=== PATIENT | male | born 1990 | race African-American/Black ===

== ENCOUNTER 2025-03-21 16:48 | Emergency (ER) | payer OTHER, SELFPAY ==
--- NOTE | ~2025-03-21 | XR_ITS ---
EXAM: XR ankle LT min 3V DATE: 03/21/2025 17:40 HISTORY: L ankle pain MEDIALLY . COMPARISON: None available. FINDINGS: Normal mineralization. Curvilinear ossific fragment adjacent to the lateral aspect of the medial malleolus. Borderline medial clear space widening. No lytic or blastic lesion. Joint spaces ar e maintained. No erosion or periosteal change. Medial soft tissue swelling. Ankle joint effusion. IMPRESSION: Possible deltoid ligament injury. Ossific fragment adjacent to the medial malleolus may r epresent a ligamentous or capsular avulsion fracture fragment. Consider timely outpatient MR of the a nkle for further evaluation. Reviewed, dictated and finalized at location K. IMPRESSION: Possible deltoid ligament injury. Ossific fragment adjacent to the medial malleolus may represent a ligamentous or capsular avulsion fracture frag ment. Consider timely outpatient MR of the ankle for further evaluation.
[2025-03-21 16:52] VITALS: BP 142/99; PULSE 85; RESP 16; TEMP 36.8; O2SAT 97
[2025-03-21 17:50] VITALS: BP 144/87; PULSE 84; RESP 20; TEMP 36.6; O2SAT 99
--- NOTE | 2025-03-21 18:11 | ED.LOWEXIN ---
HPI - Extremity Injury (Lower) General Chief Complaint: Extremity Injury, Lower Stated Complaint: L ankle pain after rolling it 1 month ago Time Seen by Provider: 03/21/25 17:03 History of Present Illness HPI Narrative: Patient is a 34-year-old male who presents to the ER with complaints of left ankle pain that started following an injury approximately 1 month ago. 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 Patient reports he went to an outside ER who put him in a walking boot and told him there was soft tissue swelling. It is unclear whether not he was told to follow-up with orthopedics. Patient reports he was discharged with Toradol p.o., but the site continues to be painful. He denies any medical history and reports he does not take any daily medications. Patient denies any calf pain, numbness or tingling to the site, or recent fevers. Related Data Allergies Allergy/AdvReac Type Severity Reaction Status Date / Time No Known Allergies Allergy Verified 03/21/25 19:19 Review of Systems Review of Systems: All systems reviewed & are unremarkable except as noted in HPI and below Exam Narrative: GENERAL: Well appearing, well-nourished, non-toxic, in no acute distress. HEAD: Normocephalic, atraumatic. NECK: Supple. No adenopathy, no masses. RESPIRATORY: Airway patent, respirations nonlabored. Clear to auscultation bilaterally, no rales, rhonchi, wheezing. CARDIOVASCULAR: Regular rate and rhythm without murmurs, rubs, or gallops. Peripheral pulses 2+ and equal bilaterally. ABDOMINAL: Soft, nontender, nondistended, no hepatosplenomegaly. Normoactive BS. MUSCULOSKELETAL: Moves all extremities. + swelling LLE, mild decreased ROM, + pedal pulse bilaterally, -Víctor's sign SKIN: Warm, dry, normal color. No rashes. NEURO: A&O X3. Speech clear. Cranial nerves II-XII intact. No ataxic movements. PSYCHIATRIC: Appropriate mood and affect. Normal interaction. Course Vital Signs Vital signs: Vital Signs Temperature 36.8 C 03/21/25 16:52 Pulse Rate 85 03/21/25 16:52 Respiratory Rate 16 03/21/25 16:52 Blood Pressure 142/99 H 03/21/25 16:52 Pulse Oximetry 97 03/21/25 16:52 Oxygen Delivery Room Air 03/21/25 16:52 Temperature 36.3 C L 03/21/25 20:54 Pulse Rate 81 03/21/25 20:54 Respiratory Rate 18 03/21/25 20:54 Blood Pressure 143/82 H 03/21/25 20:54 Pulse Oximetry 99 03/21/25 20:54 Oxygen Delivery Room Air 03/21/25 17:50 MDM - Extremity Injury (Lower) MDM Narrative Medical decision making narrative: Patient is a 34-year-old male who presents to the ER with complaints of left ankle pain that started following an injury approximately 1 month ago. 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 Patient reports he went to an outside ER who put him in a walking boot and told him there was soft tissue swelling. It is unclear whether not he was told to follow-up with orthopedics. Patient reports he was discharged with Toradol p.o., but the site continues to be painful. He denies any medical history and reports he does not take any daily medications. Patient denies any calf pain, numbness or tingling to the site, or recent fevers. Labs Ordered: None necessary Imaging Ordered: Left ankle x-ray Medications Ordered: Suffield p.o. Results: Patient's left ankle x-ray indicates Possible deltoid ligament injury. Ossific fragment adjacent to the medial malleolus may represent a ligamentous or capsular avulsion fracture fragment. Consider timely outpatient MR of the ankle for further evaluation. Diagnosis: Deltoid ligament injury, medial malleolus avulsion fracture Consults: 1799-Orthopedic surgery, Dr. Vega. Dr. Vega advises pt should follow-up with [facility] orthopedics or the orthopedic surgeon the outside ER referred him to. He advised pt should be non-weight bearing for the next four weeks. 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 He was not provided with an orthopedic surgeon to follow-up with at the outside ER. Pt was referred to a primary care provider through [facility]. 1899-Spoke with [facility] who reports patient needs to follow up with his primary care provider, who can then refer patient to a 's related orthopedic surgeon. Extensive discussion between patient and P regarding the necessity for follow-up with an orthopedic surgeon through the [facility]. Patient gave verbal consent for AUTOMATIC PILOT MECH[employer]IC to speak with his [facility], Kendra Villa, regarding the importance following up with an orthopedic surgeon. Patient Education/Shared MDM: Results of imaging shared with patient and his . He endorses improvement of symptoms following medication administration. Patient strongly advised to follow-up with his PCP and an orthopedic surgeon as soon as possible. She will be discharged home with a prescription for ibuprofen 800 mg p.o., Suffield p.o., and Colace p.o.. Strict return precautions provided. Patient verbalized understanding and is in agreement with plan. Vital signs stable at time of discharge. All questions answered. Differential Diagnosis Differential diagnosis: Likely ankle sprain and strain, ankle fracture and other (Ligament injury) Imaging Data Attestation: I personally reviewed and interpreted this imaging study as follows: Radiologist's impression: Impressions Ankle X-Ray 03/21/25 17:43 IMPRESSION: Possible deltoid ligament injury. Ossific fragment adjacent to the medial malleolus may represent a ligamentous or capsular avulsion fracture fragment. Consider timely outpatient MR of the ankle for further evaluation. Discharge Plan Discharge Clinical Impression: Avulsion fracture of medial malleolus, Deltoid ligament ankle sprain Patient Disposition: Home Condition: Stable Instructions: Antibiotic Form Additional Instructions: Please return to the ER with any worsening symptoms. Follow-up with primary care provider and orthopedic surgery as soon as possible. Take all medications as prescribed. Please do not do any weight-bearing activities on your ankle until orthopedic surgery follow-up.. Patient Language: Bhutanese Prescriptions: New ibuprofen 800 mg tablet 800 mg PO TID PRN (Reason: pain) Qty: 60 0RF hydrocodone-acetaminophen 5-325 mg tablet 1 tablet PO Q6H PRN (Reason: pain) Qty: 10 0RF docusate sodium [Colace] 100 mg capsule 100 mg PO BID Qty: 30 0RF Follow-up/Referrals: [place] [facility] [Outside] (primary care provider) PHYSICIAN NOT ON STAFF,NONSTAFF [Primary Care Provider] - Stand Alone Forms: Work/School Release IP Time of Disposition: 20:23
--- OUTSIDE RECORDS SUMMARY | 2025-03-21 18:18 | XMS_ITS | Encounter Summary ---
Author Organization [facility] Healthcare Address [address] [place] [address] Care Team Providers Care Printer Small Print Shop Name Role Phone Diego Randall MD Primary Care Provider Encounter Details Date Type Department Care Team (Late st Contact Info) Description 05/14/2024 Telephone [facility] Primary [facility] Medicine Clinic [address] [facility] [address] [place] [address] Jose Hillman Social History Tobacco Use Types Packs/Day Years Used Date Smoking Tobacco: Never Alcohol Use Standard Drinks/Week Comments Not Currently 0 (1 standard drink = 0.6 oz pur e alcohol) AUDIT-C Answer Date Recorded Q1: How often do you have a drink containing alc ohol? Never 02/14/2021 Average Number of Drinks Not on file 021 Frequency of Binge Drinking Not on file 02/03 Personal Safety Answer Date Recorded Have you ever been in or are you currently in a harmful physical or emotional relationship or is someone making you feel afraid or unsafe? 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
--- OUTSIDE RECORDS SUMMARY | 2025-03-21 18:19 | XMS_ITS | Clinical Summary ---
Author Organization [facility] Address [facility] [place] [address] Care Team Providers Care Vp Information Technology Name Role Phone None, Provider Primary Care Provider Unavaila ble Allergies Active Allergy Reactions Criticality Noted Date Comments Shellfish-Derived Products Unknown Encounters Date Type Department Care Team Description 12/31/2024 11:39 AM CDT - 12/31/2024 12:06 PM CDT Emergency [facility] [place] [address] Luis Antonio Jain PA Laceration Discharge Disposition: Home or Self Care (Routine Discharge) 12/31/2024 Travel from Last 3 Months Social History Tobacco Use Types Packs/Day Years Used Date Smoking Tobacco: Never Smokeless Tobacco: Never Tobacco Cessation:Counseling Given: Not Answered Alcohol Use Standard Drinks/Week Comments Yes 0 (1 standard drink = 0.6 oz pur e alcohol) socially Sex and Gender Information Value Date Recorded Sex Assigned at Not on file Legal Sex Male 6:18 PM CDT Gender Identity Not on file Sexual Orientation Not on file Last Filed Vital Signs Vital Sign Reading Time Taken Comments Blood Pressure 168/87 12/31/2024 11:40 AM CDT Pulse 85 12/31/2024 11:40 AM CDT Temperature 36.2 C (97.2 F) 12/31/2024 11:40 AM CDT Respiratory Rate 18 12/31/2024 11:4 0 AM CDT Oxygen Saturation 99% 12/31/2024 11: 40 AM CDT Inhaled Oxygen Concentration - - Weight 107.3 kg (236 lb 8.9 oz) 025 11:40 AM CDT Height 175.3 cm (5' 9) 12/31/2024 11:4 0 AM CDT Body Mass Index 34.93 12/31/2024 11:40 AM CDT Plan of Treatment Health Maintenance Due Date Last Done Comments Annual Physical 1993 Hepatitis C 2008 COVID-19 Vaccine (2023- season) 2024 DTaP, Tdap and Td Vaccines (7 - Td or Tdap) 07/20/2029 07/20/2019, 08/31/2002, 07/22/1992, Additional history exists Hepatitis B Vaccines Completed 06/12/2002, 04/12/2002, 05/25/2001 Meningococcal Vaccine Aged Out 07/20/2019, 006 No longer eligible based on patient's age to complete this topic HPV Vaccines Aged Out No longer eligi ble based on patient's age to complete this topic Meningococcal B Vaccine Aged Out No l onger eligible based on patient's age to complete this topic Pneumococcal Vaccine: Pediatrics (0 to 5 Years) and At-Risk Patients (6 to 49 Years) Aged Out No longer eligible based on patient's age to complete this topic RSV Immunizations Under 20 Months Aged Out No longer eligible based on patient's age to complete this topic Care Teams Vp Information Technology Relationship Specialty Start Date End Date None, Provider, MD PCP - General UNKNOWN PHYSICIAN SPECIALTY 12/31/24
--- OUTSIDE RECORDS SUMMARY | 2025-03-21 18:19 | XMS_ITS | Clinical Summary ---
Author Organization [facility] [place] Address [address] [place] [address] Care Team Providers Care Platform Software Engineer Name Role Phone Diego Randall MD Primary Care Provider Allergies Active Allergy Reactions Criticality Noted Date Comments Shellfish Containing Products Nausea & Vomiting Medium 04/13/2024 Medications amLODIPine (NORVASC) 5 mg tabletIndicatio ns:Hypertension , essential Take 1 tablet (5 mg total) by mouth daily 90 tablet 3 4 04/13/20 25 Active bacitracin 500 unit/gram ointment Apply topically 2 (two) times a day 120 g 4 Active ketorolac (TORADOL) 10 mg tablet Take 1 tablet (10 mg total) by mouth every 6 (six) hours as needed for pain 20 tablet 5 Active Active Problems Problem Noted Date Diagnosed Date Hypertension, essential 04/13/2024 Assessment & Plan (04/13/2024 3:10 PM CDT): Has been hypertensive during [facility] medical visits but never started on any medications. He is worried about the cost of the visit today. We decided to prescribe norvasc since it is fairly affordable w/o insurance and does not require frequent lab monitoring. - Started norvasc 5mg daily this visit. - Encouraged to f/u in a few months once insurance is sorted so we can re- evaluate. Sleep apnea-like behavior 04/13/2024 Assessment & Plan (04/13/2024 3:07 PM CDT): Reports he's been told by the [employer] that he has sleep apnea and stops breathing when he is sleeping on his back. He states that he tries to sleep on his side to prevent this from happening. Today, he is worried about the cost of visit so he would like to address this later once his insurance is sorted. - Offered sleep medicine referral for sleep study. Encouraged to return to clinic to revisit his once insurance is sorted out. Palpitation 04/13/2024 Assessment & Plan (04/13/2024 3:19 PM CDT): On cardiac exam today, pt had skipped heart beats. He has never been told this before. He does endorse fast heart beats and CP occasionally. - Offered EKG but pt deferred until he has insurance. 48hr Holter Monitor was placed in case the insurance we see on file is active. - Encouraged to f/u Resolved Problems Problem Noted Date Diagnosed Date Resolved Date Skipped heart beats 04/13/2024 04/13/20 24 Assessment & Plan (04/13/2024 3:12 PM CDT): Pt had Irregular heart rhythm 04/13/202404/13 Encounters Date Type Department Care Team Description 02/17/2025 4:04 PM CDT - 02/17/2025 5:[address] [facility] Emergency Department [address] [place] [id number] Acute left ankle pain (Primary Dx) Discharge Disposition: Discharge to home or self care from Last 3 Months Immunizations Immunization Administration Dates Next Due Adenovirus 07/20/2019 DTP 07/22/1992, 2,1990,06/29 Hep A, Pediatric 09/09/2005 Hep B, Adolescent or Pediatric 06/12/2002,2001,05/25/2001 IPV 07/20/2019,01/05/2005 Influenza, Quadrivalent, Spl it, Preservative Free, Intramuscular 07/09/2023,08/08/2021,07/27/2020,08/20 MMR 09/12/2021, 9,11/20/1991,07/13 Meningococcal MCV4P (Menactra) 07/20/2019 Meningococcal Polysaccharide (Menomune) 09/09/2005 OPV 07/22/1992, 2,1990,06/29 Td, adsorbed 08/31/2002 Tdap 07/20/2019 Medical History Medical History Date Comments Hypertension Family History Medical History Relation Name Comments No Known Problems Mother Relation Name Status Comments Mother Social History Tobacco Use Types Packs/Day Years [...] making you feel afraid or unsafe? 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 Gender Identity Not on file Sexual Orientation Not on file Obstetrics History Last Filed Vital Signs Vital Sign Reading Time Taken Comments Blood Pressure 161/94 02/17/2025 3:44 PM CDT Pulse 82 02/17/2025 3:44 PM CDT Temperature 36.8 C (98.2 F) 02/17/2025 3:44 PM CDT Respiratory Rate 14 02/17/2025 3:44 PM CDT Oxygen Saturation 98% 02/17/2025 3:44 PM CDT Inhaled Oxygen Concentration - - Weight 109.4 kg (241 lb 2.9 oz) 02/17/2025 3:44 PM CDT Height 175.3 cm (5' 9) 02/17/2025 3:44 PM CDT Body Mass Index 35.62 02/17/2025 3:44 PM CDT Plan of Treatment Health Maintenance Due Date Last Done Comments Depression Screening 1990 Hepatitis C Screening 1990 Varicella Vaccines (1 of 2 - 13+ 2-dose series) 2003 Regular Well Visit/Exam 18-64 2008 Covid-19 Vaccine ( season) 2024 09/08/2021, 06/19/2021 Influenza Vaccine (#1) 2025 , 08/08/2021, 07/27/2020, Additional history exists DTaP/Tdap/Td Vaccine (6 - Td or Tdap) 07/20/2029 07/20/2019, 08/31/2002, 07/22/1992, Additional history exists Hepatitis B Screening Completed 06/12/2002 , 04/12/2002, 05/25/2001 HPV Vaccines Aged Out No longer eligi ble based on patient's age to complete this topic Pneumococcal vaccine <65 Aged Out No longer eligible based on patient's age to complete this topic Procedures Procedure Name Priority Date/Time Associated Diagnosis Comments XR ANKLE LEFT 3 OR MORE VIEWS ED 02/17/2025 4:01 PM CDT from Last 3 Months Results * XR Ankle Left 3 or More Views (02/17/2025 4:01 PM CDT) Anatomical Region Laterality Modality Lower Extremities, Ankle Left Compute d Radiography 02/17/2025 4:07 PM CDT Narrative 02/17/2025 4:12 PM CDT EXAM DESCRIPTION: XR ANKLE LEFT 3 OR MORE VIEWS REASON FOR STUDY: pain Left ankle injury 5 days ago playing football, no improvement. TECHNIQUE: 3 radiographic view(s) of the left ankle . COMPARISON: None available. FINDINGS: BONES/JOINTS: There is normal osseous alignment. No acute fracture or dislocation. The joint spaces are maintained. SOFT TISSUES: Soft tissue swelling is seen about the ankle with medial predominance. IMPRESSION: Soft tissue swelling of the ankle without acute osseous abnormality. THIS IS AN ELECTRONICALLY VERIFIED FINAL REPORT 02/17/2025 4:12 PM - Electronically signed by Luis Antonio Villalobos M.D. MF: [email or web address] Report ID: [id number] Reading Location: [id number] Procedure Note Luis Antonio Villalobos, DO - 02/17/2025 EXAM DESCRIPTION: XR ANKLE LEFT 3 OR MORE VIEWS REASON FOR STUDY: pain Left ankle injury 5 days ago playing football, no improvement. TECHNIQUE: 3 radiographic view(s) of the left ankle . COMPARISON: None available. FINDINGS: BONES/JOINTS: There is normal osseous alignment. No acutefracture or dislocation. The joint spaces are maintained. SOFT TISSUES: Soft tissue swelling is seen about the ankle with medial predominance. IMPRESSION: Soft tissue swelling of the ankle without acute osseous abnormality. THIS IS AN ELECTRONICALLY VERIFIED FINAL REPORT 02/17/2025 4:12 PM - Electronically signed by Luis Antonio Villalobos M.D. MF: [email or web address] Report ID: [id number] Reading Location: [place] [address] Doron Pearson MD IMG XR PROCEDURES Final R esult from Last 3 Months Insurance WORKERS COMPENSATION GENERIC [facility] [employer] PL[employer] Care Teams Platform Software Engineer Relationship Specialty Start Date End Date Diego Randall MD [address] [place] [address] PCP - General Internal Medicine 04/13/24
--- OUTSIDE RECORDS SUMMARY | 2025-03-21 18:19 | XMS_ITS | Referral Summary ---
Author Organization [facility] Address [address] [place] [address] Care Team Providers Care Vocational Rehabilitation Teacher Name Role Phone Diego Randall MD Primary Care Provider Encounters Date Type Department Care Team Description 02/17/2025 4:04 PM CDT - 02/17/2025 5:04 PM CDT Emergency [facility] Emergency Department [address] [place] [id number] Acute left ankle pain (Primary Dx) Discharge Disposition: Discharge to home or self care from Last 3 Months Allergies Active Allergy Reactions Criticality Noted Date [...] 3:10 PM CDT): Has been hypertensive during [employer] medical visits but never started on any [...] CDT): Pt had Irregular heart rhythm 04/13/202404/13 Immunizations Immunization Administration Dates Next Due Adenovirus 07/20/2019 DTP 07/22/1992, 2,1990,06/29 Hep A, Pediatric 09/09/2005 Hep B, Adolescent or Pediatric 06/12/2002,2001,05/25/2001 IPV 07/20/2019,01/05/2005 Influenza, Quadrivalent, Spl it, Preservative Free, Intramuscular 07/09/2023,08/08/2021,07/27/2020,08/20 MMR 09/12/2021, 9,11/20/1991,07/13 Meningococcal MCV4P (Menactra) 07/20/2019 Meningococcal Polysaccharide (Menomune) 09/09/2005 OPV 07/22/1992, 2,1990,06/29 Td, adsorbed 08/31/2002 Tdap 07/20/2019 Social History Tobacco Use Types Packs/Day Years Used Date Smoking Tobacco: Never Alcohol Use Standard Drinks/Week Comments Not Currently 0 (1 standard drink = 0.6 oz pur e alcohol) AUDIT-C Answer Date Recorded Q1: How often do you have a drink containing alc ohol? Never 02/14/2021 Average Number of Drinks Not on file Frequency of Binge Drinking Not on file 02/03 Personal Safety Answer Date Recorded Have you ever been in or are you currently in a harmful physical or emotional relationship or is someone making you feel afraid or unsafe? 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 MF: GUANACO Report ID: [id number] Reading Location: [id number] Procedure Note Luis Antonio Villalobos, - 02/17/2025 EXAM DESCRIPTION: XR ANKLE LEFT [...] PM - Electronically signed by Luis Antonio Vilallobos M.D. MF: GUANACO Report ID: [id number] Reading Location: [id number] Doron Pearson MD IMG XR PROCEDURES Final R esult from Last 3 Months Insurance WORKERS COMPENSATION [facility] PL[facility] Care Teams Vocational Rehabilitation Teacher Relationship Specialty Start Date End Date Diego Randall MD [address] [place] [address] PCP - General Internal Medicine 04/13/24
--- OUTSIDE RECORDS SUMMARY | 2025-03-21 18:19 | XMS_ITS | Continuity of Care Document ---
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 It does not include entries that were removed or entered in error. Problem Status Onset Date Problem Type Date of Resolution Comments Source Allergic conjunctivitis of both eyes Active 03/29/2024 Diagnosis 0064C-GUERO Nieto Allergic conjunctivitis of both eyes Active 03/26/2024 Diagnosis 0064A-GUERO Nieto Allergic conjunctivitis of both eyes Active Condition 0064A-GUERO Nieto Acute atopic conjunctivitis, bilateral Active Diagnosis [facility]-GUERO Nieto Medications Combined list of outpatient medications from Department [facility] facilities.Medications provided include 1) outpatient medications from the last 15 months, and 2) patient-reported medications. Medication Details Route Status Patient Instructions Prescription Expires Prescription Number Last Dispense Date Ordering Provider Order Date Order Qty Source Patanol 0.1% ophthalmic solution 1 drop(s), Eye-Both , BID, # 5 mL, 0 total refill(s ), Acute, Pharmacy : [facility] Both eyes Complet ed 04/29/2024 4 2023 5.0 0064C-A JEAN-PIERRE aldrich Allergies, Adverse Reactions, Alerts Combined list of allergies from Department of Defense and Veterans Affairs facilities. It does not include entries that were removed or entered in error. Substance Category Reaction Severity Reaction type Status Date Reported Comments Source No Known Allergies Drug allergy (disorder) active 0 [facility] shellfish Food allergy Vomiting Moderate Active 4A-GUERO Nieto Immunizations Combined list of available immunizations from the Department of [facility] and Veterans Affairs facilities. 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 (MOD) Not Given COVID-19, mRNA, LNP-S, PF, 100 mcg or 50 mcg dose DoD influenza, injectable, quadrivalent- pf 2020 [id number] Seqirus complet ed influenza , injectabl e, quadrival ent-pf 08/08/21 Given Ambulat ory Pharmac y COVID Vaccine Moderna 2020 207 complet ed COVID Vaccine Moderna 06/19/21 Given Ambulat ory Pharmac y COVID-19, mRNA, LNP-S, PF, 100 mcg or 50 mcg dose 2020 PAULCitySlickera [employer] (MOD) Not Given COVID-19, mRNA, LNP-S, PF, 100 mcg or 50 mcg dose DoD influenza, injectable, quadrivalent- pf 2019 150 complet ed influenza , injectabl e, quadrival ent-pf 07/27/20 Given Ambulat ory Pharmac y influenza, injectable, quadrivalent- pf 2019 150 complet ed influenza , injectabl e, quadrival ent-pf 07/27/20 Given Ambulat ory Pharmac y influenza, injectable, quadrivalent, preservative free 2019 ALUL, () Not Given influenza , injectabl e, quadrival ent, preservat azael free DoD Influenza, injectable, quadrivalent, preservative free 0 2019 150 (MVX) complet ed Influenza , injectabl e, quadrival ent, preservat azael free DoD influenza, injectable, quadrivalent- pf 2018 Arnoldo weston Arm [id number] 150 Seqirus complet ed influenza , injectabl e, quadrival ent-pf 08/20/19 Given Ambulat ory Pharmac y Influenza, injectable, quadrivalent, preservative free 1 2018 JANIYA HYLTON [id number] 150 Seqirus (SEQ) complet ed Influenza , injectabl e, quadrival ent, preservat azael free DoD meningococcal A,C,Y,W-135 (MCV4P) 2018 [id number] 114 sanofi pasteur complet ed meningoco ccal A,C,Y,W-1 35 (MCV4P) 07/20/19 Given Ambulat ory Pharmac y adenovirus vaccine, live 2018 [id number] 143 Teva Pharmaceutica ls complet ed adenoviru s vaccine, live 07/20/19 Given Ambulat ory Pharmac y poliovirus vaccine, inactivated 2018 [id number] 10 sanofi pasteur complet ed polioviru s vaccine, inactivat ed 07/20/19 Given Ambulat ory Pharmac y tetanus, diphtheria, acellular pertu is 2018 [id number] 115 [employer] wy complet ed tetanus, diphtheri a, acellular pertussis 07/20/19 Given Ambulat ory Pharmac y measles/mumps /rubella virus vaccine 2018 [id number] 03 Merck & Company Inc complet ed measles/m umps/rube lla virus vaccine 07/20/19 Given Ambulat ory Pharmac y measles, mumps and rubella virus vaccine 1 2018 [id number] 03 Merck (MSD) complet ed measles, mumps and rubella virus vaccine DoD poliovirus vaccine, inactivated 1 2018 [id number] 10 Sanofi Pasteur (PMC) complet ed polioviru s vaccine, inactivat ed DoD meningococcal polysaccharid e (groups A, C, Y and W-135) diphtheria toxoid conjugate vaccine (MCV4P) 1 2018 [id number] 114 Sanofi Pasteur (PMC) complet ed meningoco ccal polysacch aride (groups A, C, Y and W-135) diphtheri a toxoid conjugate vaccine (MCV4P) DoD tetanus toxoid, reduced diphtheria toxoid, and acellular pertu is vaccine, adsorbed 1 2018 [id number] 115 [employer] (SKB) complet ed tetanus toxoid, reduced diphtheri a toxoid, and acellular pertussis vaccine, adsorbed DoD Adenovirus, type 4 and type 7, live, oral 1 2018 [id number] 143 [facility] [employer] (BRR) [facility] ed Adenoviru s, type 4 and type 7, live, oral DoD varicella virus vaccine 1 2018 UNK 21 Unknown (UNK) Not Given varicella virus vaccine DoD hepatitis B vaccine, adult dosage 1 2018 UNK 43 Unknown (UNK) Not Given hepatitis B vaccine, adult dosage DoD hepatitis A vaccine, adult dosage 1 2018 UNK 52 Unknown (UNK) Not Given hepatitis A vaccine, adult dosage DoD Vital Signs Combined list of inpatient and outpatient Vital Signs from Department of Defense and Veterans Affairs, ranging from 12 months to all on record, depending upon the facility. Vital Sign Value Date Comments Source Respiratory Rate 18 br/min 03/26/2024 01:44:00 [employer]64[employer] Hina Systolic Blood Pressure 140 mm[Hg] 03/26/2024 01:44:00 [employer] Uyvwr-Appkk-Clgsgio Diastolic Blood Pressure 86 mm[Hg] 03/26/2024 01:44:00 0064A-ACH Hina Temperature Temporal Artery 36.6 Patrizia 03/26/2024 01:44:00 0064A-ACH Zvbzv-Viurt-Lxlinus Peripheral Pulse Rate 66 bpm 03/26/2024 01:44:00 [facility]64A[employer] Ddbsg-Zkabf-Nlpnesq Encounters Combined list of: 1) Encounters from Department of Veterans Affairs facilities going backup to the last 18 months, not all VA inpatient encounters are included; 2) Encounters from the Department of Defense facilities going backup to 280 months. Location Location Details Encounter Type Encounter Number Reason For Visit Attending Provider ADM Date DC Date Status Disposition Source [facility](IEP Primary Care) OUTPATIENT [id number] Notes Entered by: ERNESTO PEREZ 01 Aug 2019 0715 ------- ------- ------- ------- -- OBDULIA SKINNER 08/01 Released w/o Limitations [facility] [employer] [facility](I EP Primary Care) [employer] [facility]) OUTPATIENT [id number] UMBERTO MANNING 08/20 Released w/o Limitations [facility] Flu [facility]) [address] [place] [address]([facility]) OUTPATIENT [id number] Notes Entered by: Nafisa HOWELL 17 Sep 2019 0703 ------- ------- ------- ------- -- R foot, R knee CHANDAN HOWELL 09/17 Released with Work/Duty Limitations [address] [place] [address]([facility] ) [address] [place] [address]([facility]) OUTPATIENT [id number] Notes Entered by: Nafisa HOWELL 02 Oct 2019 1007 ------- ------- ------- ------- -- R foot - FORGE CHANDAN HOWELL 10/02 Released w/o Limitations [address] [place] [address]([facility] ) [facility]([address]) OUTPATIENT [id number] Notes Entered by: KEVIN BYRD 07 Nov 2019 0614 ------- ------- ------- ------- -- R Foot x2 months, Cold Symptom s x3-4 days JEANNETTE PARK 11/06 Released with Work/Duty Limitations [facility]([address]) [address] [place] [address] Bienvenido CISNEROS ([facility])(War rior Op Med Cln Tm A Ad) TELE CONSULT [id number] Notes Entered by: MARTINEZ PATEL 10 Dec 2020 1132 ------- ------- ------- ------- -- ER f/u/Non -enroll ee (on orders) / LEROY TODD 12/10 Released to Self Care [address] [place] [address] Bienvenido CISNEROS ([facility])(W arrior Op Med Cln Tm A Ad) 0064A-ACH Lyric Shah n Emergency [id number] Acute atopic conjunc tivitis , bilater al,Markusut e atopic conjunc tivitis , bilater al GRACIE MCKEON 03/26 Discharge Disposition: Immediate Referral 0064A-A JEAN-PIERRE winkleron 0064C-ACH Lyric gupta [facility] [id number] Acute atopic conjunc tivitis , bilater cherri MERINOIU 03/29 Discharge Disposition: Home or Self Care 0064C-A JEAN-PIERRE aldrich Procedures Combined list of: 1) Procedures from Department of Veterans Affairs facilities going back up to thelast 18 months, not all VA non-surgical procedures are included; 2) All procedures from the Department of Defense facilities. Procedure Procedure Type Code Date Perfomer Comments Sourc e No data available for this section Ambulato ry Pharmacy TELE ASSESS & MGT SRV PROV QUAL NONPHYS HLTH CARE PRO TO EST PAT,PARENT,GUARD NOT ORIG REL ASSESS & MGT SRV PROV W/IN PREV 7 DAYS NOR LEAD ASSESS & MGT SRV/PX W/IN NXT 24 HR/SOON APT;5-10 MIN MED DIS 12/11/19 21 [facility] FOOT, ARCH SUPPORT, REMOVABLE, PREMOLDED, LONGITUDINAL, EACH 10/02/19 20 [facility] THERAPEUTIC PROCEDURE,1 OR MORE AREAS,EACH 15 MINUTES;NEUROMUSCU LAR REEDUCATION OF MOVEMENT,BALANCE,C OORDINATION,KINEST HETIC SENSE,POSTURE,AND/ OR PROPRIOCEPTION FOR SITTING AND/OR STANDING ACTIVITIES 09/17/19 20 [facility] INFLUENZA VIRUS VACCINE, QUADRIVALENT (IIV4), SPLIT VIRUS, PRESERVATIVE FREE, 0.5 ML DOSAGE, FOR INTRAMUSCULAR USE 08/16/20 19 [facility] ADENOVIRUS VACCINE, TYPE 7, LIVE, FOR ORAL USE 08/01/20 19 [facility] EAR MOLD/INSERT, NOT DISPOSABLE, ANY TYPE 07/18/20 19 [facility] Non-Physician Phone Call To Patient/Provider Brief (5-10min) Non-Physician Phone Call To Patient/Provider Brief (5-10min) [id number] LEROY TODD DoD Immunization Administration One Vaccine Immunization Administration One Vaccine 51785 OBDULIA PIÑA DoD Immunization Administration Each Additional Vaccine Immunization Administration Each Additional Vaccine 88636 OBDULIA PIÑA DoD Vaccines Viral Polio, Inactivated (Salk) Vaccines Viral Polio, Inactivated (Salk) 08302 [facility] Vaccines Viral Measles, Mumps and Rubella, Live Vaccines Viral Measles, Mumps and Rubella, Live 84739 [facility] Tdap Vaccine Tdap Vaccine 78152 [facility] Immunization Admin Intranasal / Oral Each Additional Vaccine Immunization Admin Intranasal / Oral Each Additional Vaccine 94893 [facility] Vaccines Adenovirus Type 4 Live, For Oral Use Vaccines Adenovirus Type 4 Live, For Oral Use 22105 [facility] Vaccines Adenovirus Type 7 Live, For Oral Use Vaccines Adenovirus Type 7 Live, For Oral Use 64426 [facility] Physical Therapy Neuromuscular Re-education Physical Therapy Neuromuscular Re-education 73498 CHANDAN HOWELL Athletic Training Re-evaluation Athletic Training Re-evaluation 37097 CHANDAN HOWELL Physical Therapy Education Orthotics Training Physical Therapy Education Orthotics Training 81514 CHANDAN HOWELL Foot, arch support, removable, premolded, longitudinal, each CHANDAN HOWELL Social History Combined list of available smoking, tobacco, and other social history from Department of Defense and Veterans Affairs facilities. Social History Type Response Date Comment Sour e Sex Representation Male (finding) 11/23/2023 Un known Organization Tobacco Cigarette use: Never-cigarette user. Other Tobacco use: Never-other tobacco user (not cigarettes). Ambulatory Pharmacy Sexual Orientation Ambula tory Pharmacy Gender identity Ambulator y Pharmacy This section is an empty social history section. [facility] Assessment and Plan Combined list of future care activities from Department of Defense and Veterans Affairs facilities (e.g., assessment and plan notes, appointments, orders, and referrals). Additional future care activities may be listed in the Plan of Care section. Result Assessment and Plan Date Source Assessment and Plan Extracted from:Title : Eye Care Office Visit Note Author: VIN MON, OD Date: 03/29/24 1. A llergic conjunctivitis of both eyes Educated patient on ocular findings. Patient instructed to discontinue Visine gtts. Patient instructed to increase doseage of Refresh gtts from every other day to atleast 4-6x/day OS. Patient also Rx-ed patanol to use BID OU (OS especially). Patient returns to [place] 09 Apr 2024. Orders: olopatadine ophthalmic(Patanol 0.1% ophthalmic solution), 1 drop(s), Eye-Both, BID, # 5 mL, 0 total refill(s), Acute, 1 drop(s) Eye-Both BID, Pharmacy: [facility] [Not filled] Discussed: Diagnosis, Medication(s)/Treatment(s), Alternatives, Potential Side Effects with Patient/Parent who indicated understanding. Comments: Medication reconciliation completed, list given to patient and/or updated in the Electronic Health Record (EHR). Medication reconciliation was completed using active medication information currently available within the EHR and patient reported active medications. Patient instructed on the importance of maintaining a current/accurate medication list and fully disclosing all active medications, including over the counter medication, herbal supplements and other supplements to their care team. Patient was also advised to bring a list of their medications with them to all future appointments and to keep a copy with them at all times for easy accessibility in the event of an emergency. Patient stated clear understanding of instructions as provided. ABBREVIATION LIST ADSO=Active Duty Service Obligation, APD = Afferent Pupillary Defect, ARx = AutoRefraction, AR = Anti-Reflective Coating, ATs = Artificial Tears, BULB = Bilateral Upper Lid Blepharoplasty, C/D = Cup to Disc, cc = With Corrective Lenses, CHRPE = Congenital Hypertrophy of the Retinal Pigment Epithelium, SCL = Soft Contact Lens, CT = Cover Test, CVF = Confrontational Visual Pak, CXL=Corneal Cross-linking, STACY = Dry Eye Syndrome, DFE = Dilated Fundus Exam, DVO=Distance Vision Only Glasses, EOMs = ExtraOcular Muscles, epi= epithelium, ET: Esotropia, EP: Esophoria, FBS = Foreign Body Sensation, FLR = Foveal Light Reflex,FML = Fluorometholone Ophthalmic Suspension, FTFC = Full To Finger Count, GAT = Goldmann Applanation Tonometry, H/E/SRF = Hemorrhages/Exudates/Sub-Retinal Fluid, , HM = Hand Motion, HVF = Palmer Visual Field, OSMEL=Higher Order Aberrations, ICL = Implantable Collamer Lens, IIH=Idiopathic Intracranial Hypertension, LASIK = Laser Assisted In Situ Keratomileusis, COURTNEY = Last Eye Exam, LVC=Laser Vision Correction, mmHg = Millimeters of Mercury, MRx = Manifest Refraction, NCT = Non-Contact Tonometry, NPC = Near Point of Convergence, NVD = NeoVascularization of the Disc, NVE = NeoVascularization Elsewhere, NVI = NeoVascularization of the Iris, OCT = Optical Coherence Tomography, Pach=Pachymetry, PAL=Progessive Addition Lenses, PEE = Punctate Epithelial Erosions, PF= Pred Forte, PHNI = No Improvement with PinHole, PIP = PseudoIsochromatic Plates, POAG = Primary Open Angle Glaucoma, PPA = Peripapillary Atrophy, PRK = PhotoRefractive Keratectomy, (R)T = Retinal Tear, RD = Retinal Detachment, REE = Routine Eye Exam, RGP=Rigid Gas Permeable Lenses, RNFL=Retinal Nerve Fiber Layer, sc = Without Corrective Lenses, SEI/SEIs = SubEpithelial Infiltrate(s), SPK = Superficial Punctate Keratitis, TFd= Trial Framed, SRx = Spectacle Prescription, TTN=To The Nose, VA = Visual Acuity, VFFTC = Visual Pak Full To Confrontation, ESP=[facility] Refractive Surgery Program, XP=exophoria, XT=exotropia 03/21/2025 [facility] Functional Status Combined list of recent functional and cognitive assessments recorded at Department of Defense and Veterans Affairs (VA).VA Functional Canadian Measurement (FIM) Scale: 1 = Total Assistance (Subject = 0% +), 2 = Maximal Assistance (Subject = 25% +), 3 = Moderate Assistance (Subject = 50% +), 4 = Minimal Assistance (Subject = 75% +), 5 = Supervision, 6 = Modified Canadian (Device), 7 = Complete Canadian (Timely, Safely). Assessment Date/Time Source Assessment Type Assessment Skill Assessment Score Assessment Details No data available for this section
[2025-03-21] MEDS: HYDROcodone/acetaminophen (*CRX) 5-325 MG TABLET 1 TAB PO (19:21)
[2025-03-21 20:54] VITALS: BP 143/82; PULSE 81; RESP 18; TEMP 36.3; O2SAT 99
== END 2025-03-21 20:56 | disposition home or self-care (01) ==
PROVIDERS: Emergency Provider Registered Nurse
DX: S82.52XA Displaced fracture of medial malleolus of left tibia, initial encounter for closed fracture (principal); S93.422A Sprain of deltoid ligament of left ankle, initial encounter; X50.9XXA Other and unspecified overexertion or strenuous movements or postures, initial encounter
CPT/HCPCS: 29515; 73610; 99284; A9270

== ENCOUNTER 2025-06-29 08:18 | Emergency (ER) | payer OTHER, SELFPAY ==
--- OUTSIDE RECORDS SUMMARY | 2025-06-29 08:21 | XMS_ITS | Clinical Summary ---
Author Organization [facility] Address [address] [place] [address] Care Team Providers Care Chief Design Branch Name Role Phone None, Provider Primary Care Provider Unavaila ble Allergies Active Allergy Reactions Criticality Noted Date Comments Shellfish Protein-Containing Drug Products Unknown 12/31/2024 Social History Tobacco Use Types Packs/Day Years [...] Last Done Comments Annual Physical 1993 Hepatitis A Vaccines (2 of 2 - 2-dose series) 03/09/2006 09/09/2005 Hepatitis C 2008 HPV Vaccines (1 - 3-dose SCDM series) 2017 COVID-19 Vaccine ( season) 2025 Influenza Adult (#1) 2025 07/09/2023, 08/08/2021, 07/27/2020, Additional history exists DTaP, Tdap and Td Vaccines (7 - [...] age to complete this topic Care Teams Chief Design Branch Relationship Specialty Start Date End Date None, Provider, PCP - General UNKNOWN PHYSICIAN SPECIALTY 12/31/24
--- NOTE | 2025-06-29 08:27 | ED.SKABFB ---
HPI - Skin/Abscess/Foreign Bdy General Chief complaint: Skin/Abscess/Foreign Body Stated complaint: bumps on my arms Time Seen by Provider: 06/29/25 08:21 History of Present Illness HPI narrative: [place] itchy red bumpy rash on bilateral arms, ongoing for last few days, overall the right arm has been getting slightly better. Has been outside doing drills and unsure if he may have touched something that he is allergic to. Related Data Allergies Allergy/AdvReac Type Severity Reaction Status Date / Time No Known Allergies Allergy Verified 03/21/25 19:19 Review of Systems Review of Systems: All systems reviewed & are unremarkable except as noted in HPI and below Exam Narrative: EXAMINATION OF ORGAN SYSTEMS/BODY AREAS: Constitutional: Vital signs per nursing GENERAL:[No acute distress, non-toxic appearing.] HEAD: Normal with no signs of head trauma. EYES: EOMI, conjunctiva normal ENT: Hearing grossly intact LUNGS: Nonlabored breathing. HEART: [Regular rate and rhythm] ABD: [Soft], [nontender to palpation] EXT: Normal range of motion SKIN: Papular rash bilateral arms, left worse than right, no redness, induration. No rash on legs, trunk, face NEURO: [Alert and oriented x 3. No gross focal sensory or strength deficits.] PSYCH: Normal affect MDM - Skin/Abscess/Foreign Bdy MDM Narrative Medical decision making narrative: Patient presenting with a new pruritic rash, unsure if he may have been exposed to something while he was at drills; only on his arms, have been getting slightly better, no swelling to his lips or tongue, no difficulty breathing or nausea vomiting or other symptoms. No one else as far as he knows has these bumps. On exam there are papular, distribution does not appear consistent with scabies, I suspect possibly contact dermatitis, will trial some steroids, antihistamines, and have follow-up with his PCP with return precautions. Patient agreeable to the plan. Discharge Plan Discharge Clinical Impression: Pruritic rash Patient Disposition: Home Condition: Stable Instructions: Dermatitis (ED) Additional Instructions: Please try the medications as prescribed, try to figure out what you may be allergic to avoid these triggers, and follow up with your doctor; you can always return for any further issues. Patient Language: Georgian Prescriptions: New cetirizine 10 mg tablet 10 mg PO DAILY PRN (Reason: itching) Qty: 20 0RF prednisone 20 mg tablet 40 mg PO DAILY 4 Days Qty: 8 0RF hydrocortisone 1 % cream 1 applic topical TID PRN (Reason: skin irritation) Qty: 28.35 0RF Rx Instructions: Can start using after finishing oral prednisone (steroids) No Action ibuprofen 800 mg tablet 800 mg PO TID PRN (Reason: pain) Qty: 60 0RF hydrocodone-acetaminophen 5-325 mg tablet 1 tablet PO Q6H PRN (Reason: pain) Qty: 10 0RF docusate sodium [Colace] 100 mg capsule 100 mg PO BID Qty: 30 0RF Follow-up/Referrals: PHYSICIAN NOT ON STAFF,NONSTAFF [Primary Care Provider]
--- OUTSIDE RECORDS SUMMARY | 2025-06-29 08:28 | XMS_ITS | Encounter Summary ---
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
--- OUTSIDE RECORDS SUMMARY | 2025-06-29 08:29 | XMS_ITS | Data Portability ---
[facility] Address [address] [place] [address] Assessment No assessment recorded. Plan of Treatment Reminders Order Date Submit Date Provider Last Modified By Organization Details Last Modified Time Details Appointments None recorded. Lab None recorded. Referral None recorded. Procedures None recorded. Surgeries None recorded. Imaging None recorded. Medication Orders ketoconazo le 2 % topical cream 2014 015 INTERFACE [id number], [facility] [place], [place], [id number], 5 13:25:36 Patient TargetsNo targets recorded. Patient InstructionsNo instructions recorded. Reason for Referral None Reported. Problems Name Problem SNOMED Code Status Onset Date Resolution Date Notes Provider Name and Address Organization Details Recorded Time Tinea corporis [id number] Active Yong Guerrero MD Attn: [employer]ing ,[address] [place], [address] , [facility] 5 13:25:25 Problem Notes None recorded. Medical Equipment None Reported. Allergies No known drug allergies Medications Name Sig Start Date Stop Date Status Note LastModified by Organization Details LastModified Time ketoconazole 2 % topical cream APPLY TO THE AFFECTED AREA(S) BY TOPICAL ROUTE ONCE DAILY 2014 active Not Available Not Available Not Avai lable Vitals Date Recorded Body height Body mass index (BMI) Body weight Heart rate Respiratory rate Systolic And Diastolic Provider Name and Address Organization Details Last Updated DateTime 5 175.26 cm 30.9 kg/m2 39582.8 0533 g 76 /min 16 /min 120/70 mm[Hg] Elaina Buchanan MA [facility] 5 13:11:26 Social History None recorded. Functional Status None recorded. Mental Status None recorded. Family History Nothing Reported. Medical History Condition Response Coronary Artery Disease N Other N Atrial Fibrillation N High Blood Pressure N Kidney or Bladder Problems N Thyroid Problems N GI Problems N Depression N COPD N Blood Clots N Skin Problems N Anemia N Heart Attack (AR) N Anxiety Disorder N Diabetes N Muscle, Joint, or Bone Problems N Seizures/Epilepsy N Acid Reflux (GERD) N Cancer N Stroke N Asthma N Allergies N High Cholesterol N Hepatitis N Liver Disease N Headaches N Osteoporosis N Heart Failure N Past Encounters Encounter ID Performer Location Encounter Start Date Encounter Closed Date Diagnosis/Indication Diagnosis SNOMED-CT Code Diagnosis ICD10 Code Diagnosis IMO Codes Diagnosis Note [id number] Yong Guerrero MD [facility] ([facility] [address] [place] [address] 12/24/2014 12:48:17 12/24/2014 17:50:19 Tinea corporis [id number] Health Concerns Section Related Observation LastModified by Organization Detai ls LastModified Time None Recorded Concern Status LastModified by Organization Details LastModified Time None Recorded Advance Directives Directive None Recorded Payers Insurance Date Sequence Insurance Name Policy Number Policy Dia Covered Member ID Dia Member ID Guarantor Name 12/24/2014 SLIDING FEE SCHEDULE - DISCOUNT Terry Mccloud
--- OUTSIDE RECORDS SUMMARY | 2025-06-29 08:29 | XMS_ITS | Encounter Summary ---
Author Organization [facility] Healthcare Address [address] [place] [address] Care Team Providers Care Rn Camp Name Role Phone Diego Randall MD Primary Care Provider Caro Fritz NP Unavailable [phone] Encounter Details Date Type Department Care Team (Late st Contact Info) Description 04/30/2025 Results Follow-Up [facility] [address] [place], [place] [id number] Diego Randall MD [address] [place], [place] [id number] Hepatitis B Surface Antigen Blood, Hepatitis C antibody Blood, Hepatitis B core antibody, total Blood, Additional followed-up results: 7 Social History Tobacco Use Types Packs/Day Years Used Date Smoking Tobacco: Never Alcohol Use Standard Drinks/Week Comments Not Currently 0 (1 standard drink = 0.6 oz pur e alcohol) AUDIT-C Answer Date Recorded Q1: How often do you have a drink containing alc ohol? Never 02/14/2021 Average Number of Drinks Not on file Frequency of Binge Drinking Not on file 02/03 Hunger Vital Sign Answer Date Recorded Within the past 12 months, y ou worried that your food would run out before you got the money to buy more. Never true 04/26/20 25 Within the past 12 months, t he food you bought just didn't last and you didn't have money to get more. Never true 04/26/2025 Personal Safety Answer Date Recorded Have you ever been in or are you currently in a harmful physical or emotional relationship or is someone making you feel afraid or unsafe? Denies 02/17/2025 Sex and Gender Information Value Date Recorded Sex Assigned at Not on file Legal Sex Male 9:06 PM [employer]K [employer] Gender Identity Not on file Sexual Orientation Not on file documented as of this encounter Plan of Treatment Not on file documented as of this encounter Visit Diagnoses Not on filedocumented in this encounter Care Teams Rn Camp Relationship Specialty Start Date End Date Diego Randall MD [address] [place] [address] PCP - General Internal Medicine 04/13/24 Caro Fritz NP [address] [facility] [phone] [place] [address] Nurse Practitioner Orthopedic Surgery 03/28/25 documented as of this encounter
--- OUTSIDE RECORDS SUMMARY | 2025-06-29 08:29 | XMS_ITS | Clinical Summary ---
Author Organization [facility] Address [address] [place] [address] Care Team Providers Care Clerk Stenographer Name Role Phone Diego Randall MD Primary Care Provider Caro Fritz NP Unavailable [phone] Allergies Active Allergy Reactions Criticality Noted Date Comments Shellfish Containing Products Nausea & Vomiting Medium 04/13/2024 Medications docusate sodium (COLACE) 100 mg capsule Take 1 capsule (100 mg total) by mouth 2 (two) times a day 03/22/2025 Active HYDROcodone-janiya taminophen (NORCO) 5-325 mg per tablet Take 1 tablet by mouth every 6 (six) hours as needed 03/22/2025 Active meloxicam (MOBIC) 7.5 mg tablet Take 1 tablet (7.5 mg total) by mouth 2 (two) times a day as needed for pain 60 tablet 1 04/26/2025 Active Active Problems Problem Noted Date Diagnosed Date Sprain of deltoid ligament of left ankle 025 Assessment & Plan (04/26/2025 12:58 PM CDT): Following with ortho. MRI 03/2025 with superficial and deep sprains of the left deltoid ligament with adjacent periosteal bone formation and associated marrow edema within the medial malleolus, mild achilles tendinopathy without discrete tear, chronic appearing sprains of the left anterior talofibular and calcaneofibular ligaments. Start meloxicam 7.5mg twice daily as needed for pain Continue physical therapy Encouraged to reach out to ortho regarding FMLA Hypertension, essential 04/13/2024 Assessment & Plan (04/26/2025 12:58 PM CDT): Rx: Norvasc 5mg BP today 136/86. Will continue off norvasc. Consider restarting next visit. BMP today Assessment & Plan (04/13/2024 3:10 PM CDT): [...] Sleep apnea-like behavior 04/13/2024 Assessment & Plan (04/26/2025 12:58 PM CDT): Reports he's been told by the [employer] that he has sleep apnea and stops breathing when he is sleeping on his back. Sleep medicine referral placed Orders: Ambulatory referral to Sleep Medicine; Future Assessment & Plan (04/13/2024 3:07 PM CDT): Reports he's been told by the [employer] that he has sleep apnea and stops [...] Encounters Date Type Department Care Team Description 05/21/2025 [facility] [address] [place] [address] 4th Floor [address] [place] [address] Piper Hubbard 05/20/2025 [facility] [address] [place] [address] 4th [address] [place] [address] Maria T Hurtado Symptom Based Call; Communication 05/10/2025 [facility] [address] [place] [address] Floor [address] [place] [address] Maria T Hurtado Letter for School/Work 04/30/2025 Results Follow-Up [facility] [address] [place] [address] [address] [place] [address] Diego Randall MD Hepatitis B Surface Antigen Blood, Hepatitis C antibody Blood, Hepatitis B core antibody, total Blood, Additional followed-up results: 7 04/26/2025 11:20 AM CDT Lab [address] [address] Healthcare maintenance; Hypertension, essential 04/26/2025 10:15 AM CDT Office Visit [facility] [address] [place] [address] [address] [place] [address] Diego Randall MD Hypertension, essential (Primary Dx); Sleep apnea-like behavior; Sprain of deltoid ligament of left ankle, subsequent encounter; Healthcare maintenance 04/11/2025 Telephone [facility] [address] [place] [address] 4th [address] [place] [address] Maria T Hurtado Communication 04/09/2025 Results Follow-Up [facility] [address] [facility] [address] [place] [address] Magdaleno Lopez MD MRI Ankle Left WO Contrast 04/04/2025 1:41 PM CDT - 04/04/2025 11:59 PM CDT Hospital Encounter [facility] [address] [place] [address] Closed fracture of ankle, unspecified laterality, initial encounter Discharge Disposition: Discharge to home or self [...] on file Legal Sex Male 9:06 PM [employer] Gender Identity Not on file Sexual Orientation Not on file Obstetrics History Last Filed Vital Signs Vital Sign Reading Time Taken Comments Blood Pressure 136/86 04/26/2025 10:16 AM CDT Pulse 84 04/26/2025 10:16 AM CDT Temperature 37.1 C (98.8 F) 04/26/2025 10:16 AM CDT Respiratory Rate 18 04/26/2025 10:1 6 AM CDT Oxygen Saturation 98% 04/26/2025 10: 16 AM CDT Inhaled Oxygen Concentration - - Weight 107.8 kg (237 lb 11.2 oz) 2024 10:16 AM CDT Height 175.3 cm (5' 9) 04/26/2025 10:1 6 AM CDT Body Mass Index 35.1 04/26/2025 10:16 AM CDT Plan of Treatment Health Maintenance Due Date Last Done Comments Depression Screening 1990 Regular Well Visit/Exam 18-64 2008 HPV Vaccines (1 - 3-dose SCDM series) 2017 Varicella Vaccines (1 of 2 - 13+ 2-dose series) 10/10/2021 Covid-19 Vaccine (3 - season) 2025 09/08/2021, 06/19/2021 Influenza Vaccine (#1) 2025 , 08/08/2021, 07/27/2020, Additional history exists DTaP/Tdap/Td Vaccine (6 - Td or Tdap) 07/20/2029 07/20/2019, 08/31/2002, 07/22/1992, Additional history exists Hepatitis B Screening Completed 04/26/2025 , 06/12/2002, 04/12/2002, Additional history exists Hepatitis C Screening Completed 04/26/2025 Pneumococcal vaccine <65 Aged Out No longer eligible based on patient's age to complete this topic Procedures Procedure Name Priority Date/Time Associated Diagnosis Comments EGFR Routine 04/26/2025 11:35 AM CDT Hypertension, essential DIFFERENTIAL AUTO Routine 04/26/2025 11: 35 AM CDT Healthcare maintenance CBC WITH AUTO DIFFERENTIAL Routine 04/26/2025 11:35 AM CDT Healthcare maintenance COMPREHENSIVE METABOLIC PANEL Routine 04/26/2025 11:35 AM CDT Hypertension, essential LIPID PANEL Routine 04/26/2025 11:35 AM CDT Hypertension, essential HIV 1/2 ANTIBODY PLUS P24 ANTIGEN Routine 04/26/2025 11:35 AM CDT Healthcare maintenance HEPATITIS B SURFACE ANTIBODY (IMMUNE STATUS) Routine 04/26/2025 11:35 AM CDT Healthcare maintenance HEPATITIS B CORE ANTIBODY, TOTAL Routine 04/26/2025 11:35 AM CDT Healthcare maintenance HEPATITIS C ANTIBODY Routine 04/26/2025 11:35 AM CDT Healthcare maintenance HEPATITIS B SURFACE ANTIGEN Routine 04/26/2025 11:35 AM CDT Healthcare maintenance POCT HEMOGLOBIN A1C Routine 04/26/2025 1 0:28 AM CDT MRI ANKLE LEFT WO CONTRAST Schedule CLAUDETTE, Read Routine (Patient lives out of area) 04/04/2025 2:39 PM CDT Closed fracture of ankle, unspecified laterality, initial encounter from Last 3 Months Results * eGFR (04/26/2025 11:35 AM CDT) eGFR 84 >=60 mL/min/1. 73 m2 Comment: Interpretive Data Reference Interval Normal >/= 90 mL/min/1.73m2 Mildly decreased* 60 - 89 mL/min/1.73m2 Mildly to moderately decreased 45 - 59 mL/min/1.73m2 Moderately to severely decreased 30 - 44 mL/min/1.73m2 Severely decreased 15 - 29 mL/min/1.73m2 Kidney Failure < 15 mL/min/1.73m2 *Relative to young adult level Estimated glomerular filtration rate is determined by the 2020 CKD-EPI equation recommended by the National Kidney Foundation (A Unifying Approach to GFR Estimation: Recommendations of the NKF-ASK Task Force on Reassessing the Inclusion of Race in Diagnosing Kidney Disease, JASN 2020). The CKD-EPI equation should not be used for patients with unstable renal function and has not been validated in children and those over 70. Current interpretive data was last reviewed 2021. Blood 04/26/2025 11:3 5 AM CDT 04/26/2025 12:41 PM CDT Diego Randall MD LAB BLOOD ORDERABLES F inal Result [facility] Department [place] [address] * Differential, auto (04/26/2025 11:35 AM CDT) Neutrophil abs 3.17 1.50 - 6.50 K/cumm Imm gran abs 0.03 0.00 - 0.10 K/cumm [facility] Lymphocyte abs 1.92 0.80 - 3.30 K/cumm [facility] Monocyte abs 0.48 0.20 - 0.80 K/cumm [facility] Eosinophil abs 0.17 0.00 - 0.50 K/cumm [facility] Basophil abs 0.03 0.00 - 0.10 K/cumm [facility] Neutrophil pct 54.7 % [facility] Comment: Interpretive Data Percent cell count reference ranges are not reported, since discordance with absolute values may lead to misinterpretation of CBC data. Current Interpretive Data was last revised on 2017. Imm gran pct 0.5 % [facility] Comment: Interpretive Data Percent cell count reference ranges are not reported, since discordance with absolute values may lead to misinterpretation of CBC data. Current Interpretive Data was last revised on 2017. Lymphocyte pct 33.1 % [facility] Comment: Interpretive Data Percent cell count reference ranges are not reported, since discordance with absolute values may lead to misinterpretation of CBC data. Current Interpretive Data was last revised on 2017. Monocyte pct 8.3 % [facility] Comment: Interpretive Data Percent cell count reference ranges are not reported, since discordance with absolute values may lead to misinterpretation of CBC data. Current Interpretive Data was last revised on 2017. Eosinophil pct 2.9 % [facility] Comment: Interpretive Data Percent cell count reference ranges are not reported, since discordance with absolute values may lead to misinterpretation of CBC data. Current Interpretive Data was last revised on 2017. Basophil pct 0.5 % [facility] Comment: Interpretive Data Percent cell count reference ranges are not reported, since discordance with absolute values may lead to misinterpretation of CBC data. Current Interpretive Data was last revised on 2017. Blood 04/26/2025 11:3 5 AM CDT 04/26/2025 12:24 PM CDT Diego Randall MD LAB BLOOD ORDERABLES F inal Result [facility] Department [place] [address] * HIV 1/2 Antibody plus p24 Antigen Blood (04/26/2025 11:35 AM CDT) Pathologist [facility] [place] HIV 1/2 ab + p24 ag Nonreactive Nonreactive Comment:Nonreactive for HIV- 1 antigen and HIV-1/HIV-2 antibodies. No laboratory evidence of HIV infection. If acute HIV infection is suspected, consider testing for HIV-1 RNA. Current interpretive data was last revised on 22. Blood 04/26/2025 11:3 5 AM CDT 04/26/2025 12:24 PM CDT Diego Randall MD LAB MICROBIOLOGY - GEN ERAL ORDERABLES Final Result Performing Organization Address [facility] Co de Phone Number [facility] Department [place] [address] * CBC with auto differential (04/26/2025 11:35 AM CDT) [facility] WBC 5.80 3.80 - 9.90 K/cumm Hgb 13.9 13.0 - 17.5 g/dL [facility] Hct 42.8 38.9 - 50.3 % [facility] Plt 295 150 - 400 K/cumm [facility] MPV 10.9 9.1 - 12.3 fL [facility] RBC 4.87 4.30 - 5.80 M/cumm [facility] MCV 87.9 81.3 - 96.4 fL [facility] MCH 28.5 27.1 - 33.3 pg [facility] MCHC 32.5 32.3 - 35.7 g/dL [facility] RDW CV 13.2 11.1 - 14.9 % [facility] RDW SD 42.5 35.7 - 48.1 fL [facility] NRBC abs 0.00 0.00 - 0.01 K/cumm [facility] Blood 04/26/2025 11:3 5 AM CDT 04/26/2025 12:24 PM CDT Diego Randall MD LAB BLOOD ORDERABLES F inal Result Performing Organization Address [facility]/ZIP Co de Phone Number [facility] Department [place] [address] * Hepatitis C antibody Blood (04/26/2025 11:35 AM CDT) [facility] Hep C Ab Nonreactive Nonreactive Comment:Antibodies to HCV no t detected. Does NOT exclude the possibility of recent exposure to HCV. Current interpretive data was last revised on 22 Blood 04/26/2025 11:3 5 AM CDT 04/26/2025 12:24 PM CDT Diego Randall MD LAB MICROBIOLOGY - GEN ERAL ORDERABLES Final Result Performing Organization Address [facility] Co de Phone Number [facility] [place] [address] * Hepatitis B core antibody, total Blood (04/26/2025 11:35 AM CDT) Pathologist [facility] [place] Hep B core IgG/IgM Nonreactive Nonreactive Blood 04/26/2025 11:3 5 AM CDT 04/26/2025 12:24 PM CDT us Diego Randall MD LAB MICROBIOLOGY - GEN ERAL ORDERABLES Final Result Performing Organization Address [facility] Co de Phone Number [facility] [place] [address] * Hepatitis B surface antibody (immune status) Blood (04/26/2025 11:35 AM CDT) Pathologist [facility] [place] HBsAb (immune status) Reactive Comment:This result is consi stent with immunity to Hepatitis B Virus when used in the setting of routine screening. Current interpretive data was last revised on 22 HBsAb (immune status) index 57.5 mIUnits/m L [facility] Blood 04/26/2025 11:3 5 AM CDT 04/26/2025 12:24 PM CDT us Diego Randall MD LAB MICROBIOLOGY - GEN ERAL ORDERABLES Final Result Performing Organization Address [facility] [place] [address] * Hepatitis B Surface Antigen Blood (04/26/2025 11:35 AM CDT) HepBsAg Nonreactive Nonreactive Blood 04/26/2025 11:3 5 AM CDT 04/26/2025 12:24 PM CDT us Diego Randall MD LAB MICROBIOLOGY - GEN ERAL ORDERABLES Final Result [facility] Department [place] [address] * (ABNORMAL) Lipid panel (04/26/2025 11:35 AM CDT) Cholesterol 209(H) 30 - 199 mg/dL Comment: Interpretive Data Ages < or = 19 years Acceptable: <170 mg/dL Borderline high: 170-199 mg/dL High: >or= 200 mg/dL Ages > or = 20 years Desirable: <200 mg/dL Borderline high: 200-239 mg/dL High: >or= 240 mg/dL Literature References: 1. Expert Panel on Integrated Guidelines for Cardiovascular Health and Risk Reduction in Children and Adolescents. Pediatrics 2011;128:S213 2. NCEP Expert Panel. Circulation 2004;110:227 Current Interpretive Data was last revised on 2018. Triglycerides 98 <=149 mg/dL [facility] Comment: Interpretive Data Ages < or = 9 years Acceptable: <75 mg/dL Borderline high: 75-99 mg/dL High: >or= 100 mg/dL Ages 10 to 20 years Acceptable: <90 mg/dL Borderline high: 90-129 mg/dL High: >or= 130 mg/dL Ages > or = 20 years Desirable: <150 mg/dL Borderline high: 150-199 mg/dL High: 200-499 mg/dL Very high: >or= 499 mg/dL Literature References: 1. Expert Panel on Integrated Guidelines for Cardiovascular Health and Risk Reduction in Children and Adolescents. Pediatrics 2011;128:S213 2. NCEP Expert Panel. Circulation 2004;110:227 Current Interpretive Data was last revised on 2018. HDL 48 >=40 mg/dL [facility] Comment: Interpretive Data Ages < or = 19 years Acceptable: >45 mg/dL Borderline low: 40-45 mg/dL Low: <40 mg/dL Ages > or = 20 years Desirable: >or= 60 mg/dL Low: <40 mg/dL Literature References: 1. Expert Panel on Integrated Guidelines for Cardiovascular Health and Risk Reduction in Children and Adolescents. Pediatrics 2011;128:S213 2. NCEP Expert Panel. Circulation 2004;110:227 Current Interpretive Data was last revised on 2018. LDL, calculated 143(H) <=129 mg/dL [facility] Comment: Interpretive Data Ages < or = 19 years Acceptable: <110 mg/dL Borderline high: 110-129 mg/dL High: >or= 130 mg/dL Ages > or = 20 years Optimal: <100 mg/dL Near optimal: 100-129 mg/dL Borderline high: 130-159 mg/dL High: >160 mg/dL Calculated using the Joni LDL-C estimating equation. This equation was implemented on 2024. Prior to this date LDL-C was estimated using the Friedewald equation. Literature References: 1. Expert Panel on Integrated Guidelines for Cardiovascular Health and Risk Reduction in Children and Adolescents. Pediatrics 2011;128:S213 2. NCEP Expert Panel. Circulation 2004;110:227 3. Joni Dexter et al. RAMÍREZ Cardiol. 2019January 03;5(5):540-548. doi: 10.1001/[email or web address].2020.0013 Current Interpretive Data was last revised on 2024. Non-HDL Cholesterol 161 mg/dL [facility] Comment: Interpretive Data Ages < or = 19 years Acceptable: <120 mg/dL Borderline high: 120-144 mg/dL High: >145 mg/dL Ages > or = 20 years When triglycerides are >200 mg/dL, Non-HDL cholesterol is a secondary target of therapy with treatment goals that are 30 mg/dL greater than the LDL cholesterol target. Literature References: 1. Expert Panel on Integrated Guidelines for Cardiovascular Health and Risk Reduction in Children and Adolescents. Pediatrics 2011;128:S213 2. NCEP Expert Panel. Circulation 2004;110:227 Current Interpretive Data was last revised on 2018. Chol/HDL ratio 4 [facility] Blood 04/26/2025 11:3 5 AM CDT 04/26/2025 12:24 PM CDT Diego Randall MD LAB BLOOD ORDERABLES F inal Result [facility] Department [place] [address] * Comprehensive metabolic panel (04/26/2025 11:35 AM CDT) Sodium 143 135 - 145 mmol/L Potassium, pl 4.0 3.3 - 4.9 mmol/L [facility] Chloride 105 97 - 110 mmol/L [facility] CO2 28 22 - 32 mmol/L [facility] Anion gap 10 2 - 15 mmol/L [facility] BUN 9 6 - 25 mg/dL [facility] Creatinine 1.17 0.80 - 1.30 mg/dL [facility] Glucose 90 70 - 199 mg/dL [facility] Comment: Interpretive Data Fasting glucose >/= 126 mg/dl is diagnostic for diabetes. Fasting is defined as no caloric intake for at least 8 hours. Fasting glucose between 100 mg/dl to 125 mg/dl is diagnostic of prediabetes. In a patient with classic symptoms of hyperglycemia or hyperglycemic crisis, a random glucose >/= 200 mg/dl is diagnostic for diabetes. In the absence of unequivocal hyperglycemia, results should be confirmed by repeat testing. The classification and Diagnosis of Diabetes Diabetes Care 2021; 46: S19-S40. Current interpretive data was last revised 2022. Calcium 9.4 8.5 - 10.3 mg/dL [facility] Bilirubin, total 0.3 0.1 - 1.2 mg/dL [facility] Protein, pl 7.6 6.5 - 8.5 g/dL [facility] Albumin 4.5 3.5 - 5.0 g/dL [facility] Alk phos 78 40 - 130 Units/L [facility] ALT 53 7 - 55 Units/L [facility] AST 24 10 - 50 Units/L [facility] Blood 04/26/2025 11:3 5 AM CDT 04/26/2025 12:24 PM CDT Diego Randall MD LAB BLOOD ORDERABLES F inal Result Performing Organization Address [facility] Co de Phone Number [facility] Department [place] [address] * (ABNORMAL) POCT hemoglobin A1c (04/26/2025 10:28 AM CDT) Hgb A1C, POC 6.0(H) 4.0 - 5.6 % Est Average Gluc POC 126 mg/dL [facility] Comment: The ADA recommends reporting an estimated Average Glucose (eAG) with all Hemoglobin A1c results using the equation derived from a study of 507 normal and diabetic adults. Minority populations were underrepresented and children were not included. (Diabetes Care 31:2360-0639, 2008). The eAG is not equivalent to a fasting glucose. Blood 04/26/2025 10:2 8 AM CDT 04/26/2025 10:28 AM CDT Diego Randall MD POINT OF CARE TEST ORD ERABLES Final Result Performing Organization Address [facility] Co de Phone Number [facility] Department [place] [address] * MRI Ankle Left WO Contrast (04/04/2025 2:39 PM CDT) Anatomical Region Laterality Modality Lower Extremities Left Magnetic Reson ance 04/04/2025 3:39 PM CDT Impressions 04/04/2025 4:26 PM CDT 1. Superficial and deep sprains of the left deltoid ligament with adjacent periosteal bone formation and associated marrow edema within the medial malleolus. 2. Mild Achilles tendinopathy without discrete tear. 3. Chronic appearing sprains of the left anterior talofibular and calcaneofibular ligaments. Dictated by: Herrera Lua M.D. The radiology attending physician has personally reviewed this study, and had reviewed and/or edited this written report and agrees with it. Electronically signed by: Barak Bajwa M.D. Narrative 04/04/2025 4:26 PM CDT EXAMINATION: 1. MR left ankle and hindfoot without contrast HISTORY: 34-year-old male with left ankle injury while playing focal. FINDINGS: Comparison is made with prior radiographs dated 03/21/2025 has been reviewed. MR examination of the left ankle and hindfoot is performed with a local coil. No intravenous or intra-articular contrast was administered for this examination. Sagittal short TR/TE and STIR images and transverse and coronal short TR/TE and fast spin-echo images are obtained. Medially, the posterior tibialis, flexor hallucis and flexor digitorum tendons are normal. Periosteal bone formation is present along the medial malleolus consistent with a superficial deltoid ligamentous injury. There is additional increased T2 hyperintense signal within the deep and superficial fibers of the deltoid ligament with adjacent marrow edema within the medial malleolus. The tibial spring and sparing ligaments are otherwise normal. Laterally, the peroneal tendons are normal. The superior peroneal retinaculum is intact. The syndesmosis and syndesmotic ligaments are intact. The anterior talofibular ligament is thickened with heterogeneous signal compatible of chronic sprain. The calcaneofibular ligament is not well seen. The posterior talofibular ligament is intact. Posteriorly, there is a mildly thickened Achilles tendon with increased T2 hyperintense signal compatible with mild tendinopathy. However, no discrete tear is present. There is no retrocalcaneal bursitis. Intrinsically, the calcaneus is normal without evidence of a stress fracture. The sinus Tarsi is normal. The plantar fascia is normal. Anteriorly, the ankle extensors are normal. No osteochondral lesion. Mild superficial tibiotalar chondrosis. There is a physiologic amount of fluid within the ankle and posterior subtalar joints. Soft tissue edema is present along the medial aspect of the foot and ankle. No acute fracture or marrow replacing lesion. Procedure Note Barak Bajwa MD PhD - 04/04/2025 EXAMINATION: 1. MR left ankle and hindfoot without contrast HISTORY: 34-year-old male with left ankle injury while playing focal. FINDINGS: Comparison is made with prior radiographs dated 03/21/2025 has been reviewed. MR examination of the left ankle and hindfoot is performed with a local coil. No intravenous or intra-articular contrast was administered for this examination. Sagittal short TR/TE and STIR images and transverse and coronal short TR/TE and fast spin-echo images are obtained. Medially, the posterior tibialis, flexor hallucis and flexor digitorum tendons are normal. Periosteal bone formation is present along the medial malleolus consistent with a superficial deltoid ligamentous injury. There is additional increased T2 hyperintense signal within the deep and superficial fibers of the deltoid ligament with adjacent marrow edema within the medial malleolus. The tibial spring and sparing ligaments are otherwise normal. Laterally, the peroneal tendons are normal. The superior peroneal retinaculum is intact. The syndesmosis and syndesmotic ligaments are intact. The anterior talofibular ligament is thickened with heterogeneous signal compatible of chronic sprain. The calcaneofibular ligament is not well seen. The posterior talofibular ligament is intact. Posteriorly, there is a mildly thickened Achilles tendon with increased T2 hyperintense signal compatible with mild tendinopathy. However, no discrete tear is present. There is no retrocalcaneal bursitis. Intrinsically, the calcaneus is normal without evidence of a stress fracture. The sinus Tarsi is normal. The plantar fascia is normal. Anteriorly, the ankle extensors are normal. No osteochondral lesion. Mild superficial tibiotalar chondrosis. There is a physiologic amount of fluid within the ankle and posterior subtalar joints. Soft tissue edema is present along the medial aspect of the foot and ankle. No acute fracture or marrow replacing lesion. IMPRESSION: 1. Superficial and deep sprains of the left deltoid ligament with adjacent periosteal bone formation and associated marrow edema within the medial malleolus. 2. Mild Achilles tendinopathy without discrete tear. 3. Chronic appearing sprains of the left anterior talofibular and calcaneofibular ligaments. Dictated by: Herrera Lua M.D. The radiology attending physician has personally reviewed this study, and had reviewed and/or edited this written report and agrees with it. Electronically signed by: Barak Bajwa M.D. Magdaleno Kg Mckeon MD IMG MRI PROCEDURES Final Result from Last 3 Months Insurance CLAIMS [employer] [facility] CHOICE [facility] H[facility]/PPO Address: [address] [address] [place] [address] Care Teams Clerk Stenographer Relationship Specialty Start Date End Date Diego Randall MD [address] [place] [address] PCP - General Internal Medicine 04/13/24 Caro Fritz NP [id number] [place] [address] Nurse Practitioner Orthopedic Surgery 03/28/25
[2025-06-29 08:30] VITALS: BP 148/97; PULSE 88; RESP 16; TEMP 36.6; O2SAT 99
[2025-06-29 08:35] VITALS: PULSE 72; RESP 16
== END 2025-06-29 08:37 | disposition home or self-care (01) ==
PROVIDERS: Emergency Provider Emergency Medicine
DX: L29.9 Pruritus, unspecified (principal)
CPT/HCPCS: 99283

== ENCOUNTER 2025-08-28 12:45 | Emergency (ER) | payer OTHER, SELFPAY ==
--- NOTE | ~2025-08-28 | US_ITS ---
LEFT LOWER EXTREMITY VENOUS DUPLEX Clinical History: calf pain COMPARISON: None TECHNIQUE: Grayscale, color, duplex/spectral Doppler sonography left leg FINDINGS: Left leg common femoral, femoral, popliteal, and calf veins compressible and color Doppler patent. Normal augmentation with distal compression. No internal echoes. IMPRESSION: 1. No left leg DVT. Reviewed, dictated and finalized at location R. [facility] IMPRESSION: 1. No left leg DVT.
[2025-08-28 12:58] VITALS: BP 146/86; PULSE 83; RESP 20; TEMP 35.9; O2SAT 100
--- NOTE | 2025-08-28 15:47 | ED_ITS ---
HPI - General Adult General Chief complaint: Extremity Injury, Lower Stated complaint: left calf pain Time Seen by Provider: 08/28/25 13:33 History of Present Illness HPI narrative: 35-year-old male presenting to the emergency department for evaluation for left posterior calf injury. Patient states that he was doing some calf exercises and had pain and tightness in the posterior left calf. Patient does have a focal area of tenderness. Related Data Allergies Allergy/AdvReac Type Severity Reaction Status Date / Time shellfish derived AdvReac Mild Nausea Verified 08/28/25 13:36 Review of Systems Review of Systems: All systems reviewed & are unremarkable except as noted in HPI and below Exam Narrative: APPEARANCE: Well appearing, no pain, no distress, well-nourished. HEAD: normocephalic, atraumatic. EYES: PERRLA/EOMI, conjunctivae clear. NECK: Supple. No adenopathy, no masses. RESPIRATORY: Airway patent, respirations nonlabored. Clear to auscultation bilaterally, no rales, rhonchi, wheezing. CARDIOVASCULAR: Regular rate and rhythm without murmurs rubs or gallops. ABDOMINAL: Soft, nontender, nondistended, normal bowel sounds MUSCULOSKELETAL: Posterior calf tenderness NEURO: Alert. Cranial nerves II through XII intact. Good gait. Good coordination SKIN: Warm, dry. Normal Color Course Vital Signs Vital signs: Vital Signs Temperature 96.7 F L 08/28/25 12:58 Pulse Rate 83 08/28/25 12:58 Respiratory Rate 20 08/28/25 12:58 Blood Pressure 146/86 H 08/28/25 12:58 Pulse Oximetry 100 08/28/25 12:58 Oxygen Delivery Room Air 08/28/25 12:58 Temperature 96.7 F L 08/28/25 12:58 Pulse Rate 83 08/28/25 12:58 Respiratory Rate 20 08/28/25 12:58 Blood Pressure 146/86 H 08/28/25 12:58 Pulse Oximetry 100 08/28/25 12:58 Oxygen Delivery Room Air 08/28/25 12:58 [facility] Narrative Medical decision making narrative: Ultrasound was negative for DVT. Do suspect a muscle cramp versus localized hematoma from a muscle tear. Patient has been taking meloxicam. Patient will be provided Flexeril for muscle spasm. Patient and family are updated on the results of the workup and plan for treatment. All questions concerns were addressed. Differential Diagnosis Differential Diagnosis: Muscle strain, hematoma, DVT Imaging Data Radiologist's impression: ITS Impressions Venous Doppler Study 08/28/25 14:05 IMPRESSION: 1. No left leg DVT. Discharge Plan Discharge Clinical Impression: Muscle strain Patient Disposition: Home Condition: Stable Instructions: Antibiotic Form Additional Instructions: Continue take her meloxicam as directed. Flexeril for muscle spasm. Avoid strenuous exercise involving the left calf. Have close follow-up with your primary care physician. If you have any worsening symptoms then please call or return to the emergency department. Patient Language: British Prescriptions: New cyclobenzaprine 10 mg tablet 10 mg PO BID PRN (Reason: muscle spasm) Qty: 14 0RF No Action ibuprofen 800 mg tablet 800 mg PO TID PRN (Reason: pain) Qty: 60 0RF hydrocodone-acetaminophen 5-325 mg tablet 1 tablet PO Q6H PRN (Reason: pain) Qty: 10 0RF docusate sodium [Colace] 100 mg capsule 100 mg PO BID Qty: 30 0RF cetirizine 10 mg tablet 10 mg PO DAILY PRN (Reason: itching) Qty: 20 0RF prednisone 20 mg tablet 40 mg PO DAILY 4 Days Qty: 8 0RF hydrocortisone 1 % cream 1 applic topical TID PRN (Reason: skin irritation) Qty: 28.35 0RF Rx Instructions: Can start using after finishing oral prednisone (steroids) Follow-up/Referrals: Brigette Randall [Other] Stand Alone Forms: Work/School Release IP
== END 2025-08-28 17:22 | disposition home or self-care (01) ==
PROVIDERS: Emergency Provider Emergency Medicine
DX: S86.812A Strain of other muscle(s) and tendon(s) at lower leg level, left leg, initial encounter (principal)
CPT/HCPCS: 93971; 99284